=== PATIENT | male | born 1990 | race Caucasian/White ===

== ENCOUNTER 2017-03-17 13:41 | Emergency (ER) | payer OTHER ==
[2017-03-17 13:49] VITALS: RESP 18; O2SAT 98
--- NOTE | 2017-03-17 14:07 | EDPHY ---
H & P Time Seen by Provider: 03/17/17 13:44 HPI/ROS: CHIEF COMPLAINT: Seizure, nausea and vomiting HISTORY OF PRESENT ILLNESS: Patient is a 26-year-old male who presents to the emergency department with multiple complaints. 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 He is prescribed Lamictal and has been taking his medications regularly. The patient states that it was recommended that he have the tumor removed but he has been too frightened to have the procedure done. The patient is visiting from [place]. He flew in yesterday. He went stated friend's house. While descending on the flight he developed mild frontal headache that does not radiate. He has had significant nausea with no vomiting. He describes diffuse abdominal discomfort with nausea. No fevers or chills. No dysuria frequency. Patient states that he has had 5 seizures since yesterday. REVIEW OF SYSTEMS: My complete review of systems is negative except as mentioned in the HPI. Past Medical/Surgical History: Includes parietal mass, seizure disorder Social history: The patient is from [place]. He does not smoke use drugs. Smoking Status: Never smoked Physical Exam: Vitals noted GENERAL: Mild nausea distress, alert. HEENT: Eyes normal to inspection, normal pharynx, no signs of dehydration. NECK: No thyromegaly, no lymphadenopathy, supple. RESPIRATORY: Clear to auscultation bilaterally, no rales, rhonchi or wheezing. CVS: Regular rate and rhythm, no rubs, murmurs, or gallops. ABDOMEN: Soft, nontender, nondistended, no organomegaly. Benign BACK: Normal to inspection, no CVA tenderness. SKIN: Normal color, no rash, warm, dry. No pallor. EXTREMITIES: No pedal edema, no calf tenderness, no Homans sign or cords, no joint swelling. NEURO/PSYCH: Higher functions: Alert and Oriented x3. Normal speech and cognition. Normal mood and affect. Cranial nerves: Normal as tested. Cerebellar: Normal as tested. Good finger to nose, good [id number], normal gait. Peripheral exam: Normal motor exam. Normal sensation. Normal reflexes. Constitutional: Initial Vital Signs Temperature (C) 37.0 C 03/17/17 13:45 Heart Rate 88 03/17/17 13:45 Respiratory Rate 18 03/17/17 13:45 Blood Pressure 154/92 H 03/17/17 13:45 O2 Sat (%) 98 03/17/17 13:45 O2 Delivery Mode Room Air Allergies/Adverse Reactions: No Known Allergies Allergy (Unverified 03/17/17 13:44) Home Medications: Medication Instructions Recorded Ativan 03/17/17 LYRICA 03/17/17 Lamotrigine 03/17/17 Onfi 03/17/17 Zolpidem Tartrate [Ambien 5MG (*)] 5 mg PO HS #3 tab 03/17/17 Medical Decision Making ED Course/Re-evaluation: I met EMS on arrival. I took report from the brick pitcher. Of note he received Zofran 8 mg IV and normal saline EN route. I discussed the plan with the patient answered all his questions. The patient had normal capacity. He understood my recommendations and his current situation. He does not want CT imaging at this time. I discussed the pros and cons of imaging. He states he has had a lot of imaging recently and does not want further imaging of his brain. My discussion included but was not limited to the possibility of increase tumor size or bleeding causing his symptoms. Patient still refused imaging. He was not postictal. I reviewed the patient's laboratory studies. White count was mildly elevated at 11. His chemistry panel was notable for mildly low CO2 at 20. Anion gap is 18. His LFTs were normal. Calcium was 10. I rechecked the patient. He stated his abdomen pain had resolved. His nausea had improved. He still was having a headache. He requests pain medicine. He was given fentanyl 100 mcg IV. He had no focal neurologic deficits. 16 30: Patient is feeling better. He has no headache abdominal pain. On reexamination is abdomen is soft, nontender nondistended. No focal neurologic deficits. Patient did ask for sleeping tablets prior to leaving. He was given a prescription for 3 tablets of Ambien. He is given warnings prior to leaving. He will return with worsening symptoms. Differential Diagnosis: My differential includes but is not limited to subarachnoid hemorrhage, subdural hematoma, epidural hematoma, ischemic CVA, hemorrhagic CVA, mass effect , migraine, electrolyte abnormality, sugar abnormality, small-bowel obstruction , perforation, cholecystitis, pancreatitis, seizure disorder, dehydration - Data Points Laboratory Results: Laboratory Results 03/17/17 13:45 03/17/17 13:45 03/17/17 03/17/17 03/17/17 13:45 13:45 13:45 WBC 11.39 10^3/uL H 10^3/uL (3.80-9.50) RBC 5.16 10^6/uL 10^6/uL (4.40-6.38) Hgb 16.4 g/dL g/dL (13.7-17.5) Hct 46.3 % % (40.0-51.0) MCV 89.7 fL fL (81.5-99.8) MCH 31.8 pg pg (27.9-34.1) MCHC 35.4 g/dL g/dL (32.4-36.7) RDW 12.2 % % (11.5-15.2) Plt Count 266 10^3/uL 10^3/uL (150-400) MPV 10.7 fL fL (8.7-11.7) Neut % (Auto) 91.5 % H % (39.3-74.2) Lymph % (Auto) 4.7 % L % (15.0-45.0) [place] % (Auto) 3.2 % L % (4.5-13.0) Eos % (Auto) 0.0 % L % (0.6-7.6) Baso % (Auto) 0.2 % L % (0.3-1.7) Nucleat RBC Rel Count 0.0 % % (0.0-0.2) Absolute Neuts (auto) 10.44 10^3/uL H 10^3/uL (1.70-6.50) Absolute Lymphs (auto) 0.53 10^3/uL L 10^3/uL (1.00-3.00) Absolute Monos (auto) 0.36 10^3/uL 10^3/uL (0.30-0.80) Absolute Eos (auto) 0.00 10^3/uL L 10^3/uL (0.03-0.40) Absolute Basos (auto) 0.02 10^3/uL 10^3/uL (0.02-0.10) Absolute Nucleated RBC 0.00 10^3/uL 10^3/uL (0-0.01) Immature Gran % 0.4 % % (0.0-1.1) Immature Gran # 0.04 10^3/uL 10^3/uL (0.00-0.10) PT 13.9 SEC SEC (12.0-15.0) INR 1.08 (0.83-1.16) APTT 31.3 SEC SEC (23.0-38.0) Sodium 139 mEq/L mEq/L (134-144) Potassium 4.1 mEq/L mEq/L (3.5-5.2) Chloride 101 mEq/L mEq/L (97-110) Carbon Dioxide 20 mEq/l L mEq/l (22-31) Anion Gap 18 mEq/L H mEq/L (8-16) BUN 12 mg/dL mg/dL (7-23) Creatinine 0.9 mg/dL mg/dL (0.7-1.3) Estimated GFR > 60 Glucose 112 mg/dL H mg/dL (70-100) Calcium 10.6 mg/dL H mg/dL (8.5-10.4) Total Bilirubin 1.3 mg/dL mg/dL (0.1-1.4) Conjugated Bilirubin 0.3 mg/dL mg/dL (0.0-0.5) Unconjugated Bilirubin 1.0 mg/dL mg/dL (0.0-1.1) AST 30 IU/L IU/L (17-59) ALT 42 IU/L IU/L (21-72) Alkaline Phosphatase 76 IU/L IU/L (38-126) Total Protein 8.5 g/dL H g/dL (6.3-8.2) Albumin 5.4 g/dL H g/dL (3.5-5.0) Lipase 104 IU/L IU/L (23-300) Medications Given: Discontinued Medications Fentanyl (Sublimaze) 100 mcg IVP EDNOW ONE Stop: 03/17/17 15:23 Last Admin: 03/17/17 15:35 Dose: 100 mcg Promethazine HCl (Phenergan) 12.5 mg IVP ONCE ONE Stop: 03/17/17 14:15 Last Admin: 03/17/17 14:46 Dose: 12.5 mg Departure - Departure Disposition: Home, Routine, Self-Care Clinical Impression: Nausea Headache Qualifiers: Headache type: unspecified Headache chronicity pattern: acute headache Intractability: not intractable Qualified Code(s): R51 - Headache Condition: Good Instructions: Acute Headache (ED), Acute Nausea and Vomiting (ED) Additional Instructions: Return with increasing headache, abdominal pain, nausea, vomiting or any other concerns. Referrals: Patient,NotPresent [Unknown] - As per Instructions Prescriptions: Zolpidem Tartrate [Ambien 5MG (*)] 5 mg PO HS #3 tab
[2017-03-17 14:14] LABS: % IMMATURE GRANULYOCYTES 0.4 % (0.0-1.1); ABSOLUTE IMMATURE GRANULOCYTES 0.04 10^3/uL (0.00-0.10); ADD DIFF? NO; ADD MORPH? NO; ADD SCAN? NO; ATYPICAL LYMPHOCYTE FLAG 0 (0-99); FRAGMENT RBC FLAG 0 (0-99); HEMATOCRIT 46.3 % (40.0-51.0); HEMOGLOBIN 16.4 g/dL (13.7-17.5); LEFT SHIFT FLG 0 (0-99); LIPEMIA HEMOLYSIS FLAG 90 (0-99); MEAN CELL HEMOGLOBIN 31.8 pg (27.9-34.1); MEAN CELL HEMOGLOBIN CONCENTR. 35.4 g/dL (32.4-36.7); MEAN CELL VOLUME 89.7 fL (81.5-99.8); MEAN PLATELET VOLUME 10.7 fL (8.7-11.7); PLATELET CLUMPS FLAG 10 (0-99); PLATELET COUNT 266 10^3/uL (150-400); RED BLOOD CELL COUNT 5.16 10^6/uL (4.40-6.38); RED CELL DISTRIBUTION WIDTH 12.2 % (11.5-15.2)
[2017-03-17] MEDS ORDERED: PROMETHAZINE HCL 25 MG/ML INJ IVP ONE (14:14)
[2017-03-17 14:21] LABS: INR 1.08 (0.83-1.16); PROTIME(PATIENT) 13.9 SEC (12.0-15.0)
[2017-03-17 14:22] LABS: ALANINE AMINOTRANSFERASE 42 IU/L (21-72); ALBUMIN 5.4 g/dL (3.5-5.0); ALKALINE PHOSPHATASE 76 IU/L (38-126); ANION GAP 18 mEq/L (8-16); APTT 31.3 SEC (23.0-38.0); ASPARTATE AMINOTRANSFERASE 30 IU/L (17-59); BILIRUBIN,TOTAL 1.3 mg/dL (0.1-1.4); BILIRUBIN-CONJUGATED 0.3 mg/dL (0.0-0.5); CALCIUM 10.6 mg/dL (8.5-10.4); CARBON DIOXIDE 20 mEq/l (22-31); CHLORIDE 101 mEq/L (97-110); CREATININE 0.9 mg/dL (0.7-1.3); GLOMERULAR FILTRATION RATE > 60; GLUCOSE 112 mg/dL (70-100); POTASSIUM 4.1 mEq/L (3.5-5.2); SODIUM 139 mEq/L (134-144); TOTAL PROTEIN 8.5 g/dL (6.3-8.2)
[2017-03-17] MEDS ORDERED: fentaNYL 100 MCG/2 ML INJ IVP ONE (15:22)
[2017-03-17 16:50] VITALS: BP 140/76; PULSE 100; TEMP 98.4
[2017-03-17] MEDS ORDERED: ONDANSETRON 4MG PREPACK#2 BTL TAKEHOME ONE (17:05)
== END 2017-03-17 16:50 | disposition home or self-care (01) ==
DX: R11.0 Nausea (principal); R51 Headache
CPT/HCPCS: 96374; J2550; J3010